=== PATIENT | female | born 1945 | race Caucasian/White ===

== ENCOUNTER 2022-02-26 15:08 | Emergency (ER) | payer MEDICARE, SELFPAY ==
[2022-02-26 15:18] VITALS: BP 148/77; PULSE 63; RESP 18; TEMP 36.2; O2SAT 97; BMI 25.8
--- NOTE | 2022-02-26 15:45 | ED.EYEPROB ---
HPI - Eye Problem General Chief complaint: Eye Problems Stated complaint: possibly something in left eye Time Seen by Provider: 02/26/22 15:11 History of Present Illness HPI Narrative: Dinora is a 77-year-old female patient presents emergency department via POV after she sustained an accidental injury to her left eye. The patient and her significant other were moving branches when she was struck in the eye by a branch. She reports the injury occurred approximately 2 hours prior to arrival. She denies changes in vision. She denies discharge. She reports foreign body sensation. She has attempted to flush the eye at her home with little improvement symptoms. Otherwise, she has attempted no treatment prior to arrival. She denies other acute concerns or complaints. Related Data Home Medications Medication Instructions Recorded Confirmed citalopram 10 mg tablet mg 02/26/22 Previous Rx's Medication Instructions Recorded erythromycin 5 mg/gram (0.5 %) eye 1 applic ophthalmic (eye) Q8H 1 02/26/22 ointment week #3.5 grams Allergies Allergy/AdvReac Type Severity Reaction Status Date / Time No Known Drug Allergies Allergy Verified 02/26/22 15:21 Review of Systems Const: Denies: fever, chills or fatigue Eyes: Reports: eye discomfort and increased production of tears; Denies: change in vision or blurry vision (As long as she is wearing her glasses) ENMT: Denies: throat pain, ear pain, nasal discharge, nasal congestion or nose bleeds Endo: Denies: fatigue PFSH PFSH Social History Smoking Status: Never smoker Do you use any of these nicotine containing products: None Second hand tobacco smoke exposure: No How often do you have a drink containing alcohol: never How often do you have six or more drinks on one occasion: Never AUDIT-C Alcohol total score: 0 Non-prescribed substance use: denies use Exam Const: Vital Signs, click to edit/add: Vital Signs - 24 hr 02/26/22 15:18 Temperature 97.2 F L Pulse Rate [Left P ulse Oximeter] 63 Respiratory Rate 18 Blood Pressure [Ri ght Upper Arm] 148/77 H Pulse Oximetry 97 Oxygen Delivery Me thod Room Air Documenting provider has reviewed patient's vital signs: yes Common normals: no apparent distress, oriented x3, healthy appearing, alert and well nourished General appearance: cooperative, comfortable and well developed; not in distress Orientation/consciousness: Yes awake, Yes oriented to person, Yes oriented to place and Yes oriented to time HENMT: Common normals: normocephalic, head/scalp atraumatic, hearing grossly normal bilaterally, external ears normal and external nose normal Head and scalp: normocephalic and atraumatic Face and sinus: normal facial exam, sinuses nontender and face symmetric Nose: external nose normal External ear: external ears normal Eye: Common normals: PERRL and EOMs intact bilaterally General eye: normal appearance of both eyes and normal light reflex Visual acuity: acuity normal (20/40) Alignment: alignment normal Periorbital: periorbital findings normal Eyelid: eyelids normal Conjunctiva: conjunctiva abnormal left conjunctival injection localized Cornea: fluorescein used (Evidence of abrasion is noted at 3:00 o'clock) Pupil: PERRL Direct Ophthalmoscopy: normal light reflex Neck & C-Spine: Common normals: full ROM and supple Resp: Common normals: normal respiratory effort and no use of accessory muscles Cardio: Common normals: regular rate, regular rhythm and peripheral pulses 2+ throughout Rate: regular rate Rhythm: regular rhythm Peripheral pulses: pulses 2+ throughout Extremity: Common normals: normal to inspection Neuro: Common normals: oriented x3 Sensorium/orientation: awake, alert, oriented to person, oriented to place and oriented to time Speech: speech normal Gait (neuro): normal gait Motor exam: no movement abnormalities noted Psych: Common normals: mental status grossly normal and speech normal Attitude: calm Activity/motor behavior: appropriate eye contact Speech: normal speech Thought content: normal thought content Attention/concentration: attention grossly intact Memory/cognition: memory grossly intact Insight: insight good Judgement: judgment good Skin: Common normals: no rashes or lesions noted General skin exam: no rashes or lesions noted Course Course Hospital Course: Dinora presented for evaluation of eye injury approximately 2 hours prior to arrival. Fluorescein stain was used and noted corneal abrasion. Patient had visual acuity which was normal. We discussed post cares and antibiotic ointment was prescribed. Vital Signs Vital signs: Initial Vital Signs Temperature 97.2 F L 02/26/22 15:18 Temperature Source Temporal Artery Scan 02/26/22 15:18 Pulse Rate 63 02/26/22 15:18 Respiratory Rate 18 02/26/22 15:18 Blood Pressure 148/77 H 02/26/22 15:18 Blood Pressure Mean 100 02/26/22 15:18 Blood Pressure Position Supine 02/26/22 15:18 Pulse Oximetry 97 02/26/22 15:18 Oxygen Delivery Method 02/26/22 15:18 Vital Signs Temperature 97.2 F L 02/26/22 15:18 Pulse Rate 63 02/26/22 15:18 Respiratory Rate 18 02/26/22 15:18 Blood Pressure 148/77 H 02/26/22 15:18 Pulse Oximetry 97 02/26/22 15:18 Oxygen Delivery Method 02/26/22 15:18 Temperature 97.2 F L 02/26/22 15:18 Pulse Rate 63 02/26/22 15:18 Respiratory Rate 18 02/26/22 15:18 Blood Pressure 148/77 H 02/26/22 15:18 Pulse Oximetry 97 02/26/22 15:18 Oxygen Delivery Method 02/26/22 15:18 MDM - Eye Problem Differential Diagnosis Differential diagnosis: Likely corneal abrasion, conjunctivitis, acute iritis and subconjunctival hemorrhage Discharge Plan Discharge Clinical Impression: Corneal abrasion Patient Disposition: Home, Self-Care Condition: Stable Instructions: Corneal Abrasion (ED) Additional Instructions: Thank you for choosing [facility] for your care today. You have a mild abrasion to your eye. All eye drops may worsen symptoms prior to improvement due to irritation, drainage, and discomfort. You may use artificial tears for lubrication and symptom relief. Consider compress 2-4 times daily as needed for symptom relief. You may consider the use of a hard boiled egg for compress. You apply the warm/cooled egg, after the shell is removed, directly to the affected eye. It is important that you use good hygiene. Warning signs are photophobia (pain with light), severe headache, or change in vision or red flags that should prompt urgent local medical re-evaluation. Please arrange follow-up visit if you have not noticed improvement in 5-7 days. If new or worsening symptoms develop or you have questions in the meantime, please call your primary care clinic or return to the emergency department for re-evaluation. Activity Level: No Restrictions and Activity as Tolerated Discharge Diet: Regular Prescriptions: New erythromycin 5 mg/gram (0.5 %) ointment 1 applic ophthalmic (eye) Q8H 7 Days Qty: 3.5 1RF No Action citalopram 10 mg tablet Follow Up/Referrals: Lottie Mendes PA-C [Primary Care Provider] - Stand Alone Forms: [employer] Info Instructions
== END 2022-02-26 16:23 | disposition home or self-care (01) ==
PROVIDERS: Emergency Provider Family Medicine; PCP Physician Assistant Medical
DX: S05.00XA Injury of conjunctiva and corneal abrasion without foreign body, unspecified eye, initial encounter (principal)
CPT/HCPCS: 99281; 99283; 99284; A9270